=== PATIENT | male | born 1980 | race Caucasian/White ===

== ENCOUNTER → 2017-05-01 | Outpatient (CLI) | payer OTHER ==
--- NOTE | 2017-05-01 13:45 | KCIC ---
KNEE RIGHT 3V Indication: .Pain for 3 months. Comparison: No comparison is available. FINDINGS: Suprapatellar joint effusion. No acute fracture identified. There is some ill-defined density within the infrapatellar fat could represent scarring or swelling. Mild degenerative spurring at the medial compartment. IMPRESSION: 1. Joint effusion. 2. Scarring or edema of the infrapatellar fat 3. No acute fracture or dislocation. 4. Mild degenerative spurring at the medial compartment. Electronically signed by: Colt Zhang MD (05/01/2017 1:42 PM) [facility]
== END | disposition home or self-care (01) ==
LOC: KCIC 13:08
PROVIDERS: ATTEND Family Medicine
DX: M25.461 Effusion, right knee (principal)
CPT/HCPCS: 73562

== ENCOUNTER → 2018-06-12 | Outpatient (CLI) | payer OTHER ==
--- NOTE | 2018-06-12 16:01 | KCIC ---
MR of the left knee Indication: Left knee pain, history of ACL tear without repair. Popping, locking and instability. Comparison: None are available. Technique: The standard multiplanar sequences are obtained. FINDINGS: Artifact: No significant image degradation. Medial meniscus: Mild signal within the medial meniscus, subtle violation of the undersurface on a couple of coronal slices compatible with a mild tear. Lateral meniscus: Signal within the posterior horn, extends laterally through the nonarticular peripheral margin. There is also more subtle violation of the superior and inferior surface. Anterior cruciate ligament: Not visualized, compatible with the history of unrepaired tear. Posterior cruciate ligament: Intact Medial collateral ligament: Intact. Lateral structures: * Iliotibial band: Intact. * Lateral collateral ligament: Intact. * Biceps femoris tendon: Intact * Popliteus tendon attachment: Intact Extensive mechanism: * Patellar tendon: Intact * Quadriceps tendon: Intact * Retinacular structures: Intact Fluid: Small joint effusion. No significant De La Cruz's cyst. Intra-articular bodies: None visualized Joint compartments * patellofemoral joint: Chondromalacia the patella with heterogeneous signal and mild fissuring. * medial compartment: Mild chondromalacia medial femoral condyle. * lateral compartment:Intact Bones: Mild subchondral marrow edema at the posterior medial femoral condyle adjacent to the gastrocnemius insertion. No acute fracture or aggressive bone destruction. Soft tissue: Unremarkable Impression: 1. 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 2. Medial meniscal tear. 3. Lateral meniscal tear. Electronically signed by: Colt Zhang MD (06/12/2018 3:57 PM) [facility]
== END | disposition home or self-care (01) ==
LOC: KCIC MRI 10:51
PROVIDERS: ATTEND Family Medicine
DX: S83.242A Other tear of medial meniscus, current injury, left knee, initial encounter (principal); S83.282A Other tear of lateral meniscus, current injury, left knee, initial encounter; R60.0 Localized edema; M22.42 Chondromalacia patellae, left knee; M25.462 Effusion, left knee; X58.XXXA Exposure to other specified factors, initial encounter; Y93.89 Activity, other specified; Y92.89 Other specified places as the place of occurrence of the external cause; Y99.8 Other external cause status
CPT/HCPCS: 73721

== ENCOUNTER 2018-07-25 06:07 | Day surgery (SDC) | payer OTHER ==
[~2018-07-25] VITALS: Ht 180.3 cm; Wt 98.0 kg
[2018-07-25] MEDS ORDERED: LISI-130 PO (06:40)
[2018-07-25] MEDS ORDERED: LEVO75TA5 PO (06:40)
[2018-07-25] MEDS ORDERED: VALA500T5 PO (06:40)
[2018-07-25] MEDS: IV RINGERS,LACTATED 1000ML 1,000 ML IV SCH ×2 (06:45→09:22)
--- NOTE | 2018-07-25 06:57 | DISCH ---
DISCHARGE INSTRUCTIONS Condition on Discharge Condition on Discharge: Stable Activity After Discharge Activity Instructions for Disc: Activity as tolerated Other activity instructions: ok to ADLs, no exercise/sports Bathing Instructions: Shower-keep dressing dry Lifting Instructions after Dis: No heavy lifting, No pulling or pushing Weight Bearing Status after Di: As tolerated Diet after Discharge Diet after Discharge: Regular Wound Incision Care Wound/Incision Care: Ice to area for comfort, Keep wound/cast CDI, Change dressing Other wound/incision instructi: ok to change dressing after 2 days Contacting the DROusmane after DC Call your doctor for: Concerns you may have Follow-Up Follow up with: Estephania in 2 wks IVONNE STEPHENSON II, MD Jul 25, 2018 06:57
[2018-07-25] MEDS ORDERED: LIDOCAINE 1% PF 2 ML VIAL. ID PRN (07:00)
[2018-07-25] MEDS ORDERED: HYDROmorphone 2 MG/ML VIAL IV PRN (07:00)
[2018-07-25] MEDS ORDERED: MORPHINE SULFATE 4 MG/ML VIAL. IV PRN (07:00)
[2018-07-25] MEDS ORDERED: fentaNYL PF VIAL 100 MCG/2 ML VIAL IV PRN (07:00)
[2018-07-25] MEDS ORDERED: PROCHLORPERAZINE 10 MG/2 ML VIAL. IV PRN (07:00)
[2018-07-25] MEDS ORDERED: ONDANSETRON PF 4 MG/2 ML VIAL. IV PRN (07:00)
[2018-07-25] MEDS ORDERED: MIDAZOLAM HCL/PF 2 MG/2 ML VIAL. ONE (07:12)
[2018-07-25] MEDS ORDERED: fentaNYL PF VIAL 100 MCG/2 ML VIAL ONE (07:12)
[2018-07-25] MEDS ORDERED: DEXAMETHASONE SOD PHOS 20 MG/5 ML VIAL. ONE (07:12)
[2018-07-25] MEDS ORDERED: PROPOFOL 20 ML IV ONE (07:12)
[2018-07-25] MEDS ORDERED: LIDOCAINE 2% PF 5 ML VIAL. ONE (07:12)
[2018-07-25] MEDS ORDERED: ONDANSETRON PF 4 MG/2 ML VIAL. ONE (07:12)
[2018-07-25] MEDS ORDERED: LIDOCAINE 1% PF 30 ML VIAL. ONE (07:14)
[2018-07-25] MEDS ORDERED: BUPIVACAINE MPF 0.5% 30 ML VIAL. ONE (07:14)
[2018-07-25] MEDS ORDERED: EPINEPHrine VIAL 30 MG/30 ML VIAL ONE (07:14)
[2018-07-25] MEDS ORDERED: SEVOFLURANE 61 TO 120 MINUTES. IH ONE (09:02)
--- NOTE | 2018-07-25 09:20 | PDOC4 ---
Operative Note Operative Note Date of procedure: 07/25/2018 Surgeon: Troy Stephenson Asst.: Anabel Martinez, board certified music therapist, was necessary to assist with graft preparation as well as manipulation of the leg during tunnel drilling. Preoperative diagnosis: #1 complete left knee ACL tear #2 lateral meniscus tear #3 medial meniscus tear Postoperative diagnosis: #1 complete left knee ACL tear #2 complex white white zone lateral meniscus tear Procedure performed: #1 arthroscopic assisted allograft ACL reconstruction #2 arthroscopic partial lateral meniscectomy Anesthesia: Gen. Blood loss: 10 mL Tourniquet time: 61 minutes Findings: #1 grade 2-3 changes centrally at patella #2 softening of lateral tibial plateau, grade 2 changes at the proximally 60 at medial femoral condyle, otherwise remainder of the intra-articular cartilage unremarkable #3 medial meniscus with flounce sign, stable to probing #4 complex inner portion lateral meniscus tear at the body #5 complete ACL tear #6 intact PCL Complications: None Reason for procedure: Patient is a pleasant 37-year-old who presented to my clinic complaining of giving out and pain at his left knee. It happened going on for many years, he initially injured his knee while intoxicated. Clinical and radiographic examination including MRI were consistent with the preoperative diagnosis and after discussion of the risks, benefits, and alternatives he elected to proceed with the above surgery. Description of procedure: Patient was greeted in the preoperative area by myself for the correct extremity was verified and marked. He was taken back to the operative suite and his antibiotics are started as he was brought back. Once in the operating room, he was stretched gently supine to the operating room table and secured to the bed with all pressure points padded. I then conducted my examination under anesthesia after successful induction of a general anesthetic. He had a positive pivot shift, positive Janice without endpoint. Knee was stable to varus and valgus in extension and 30 of flexion. Negative dial. At this point, the graft was started to thigh on the back table. We then proceeded prep and drape left lower extremity in our usual sterile fashion and conducted our standard preoperative timeout. Prior to this, a nonsterile tourniquet had been it in place to his left upper thigh as well as a padded bump laterally at his hip and a padded rest at the foot of the bed to maintain his knee in 90 passively. I then palpated and marked surface anatomy and kassandra lines for my planned portal sites. After accomplishing this, the extremity was exsanguinated with an Esmarch and tourniquet was insufflated to 250 mmHg. I then used a scalpel to incise skin for my standard anterolateral arthroscopic portal. I used blunt arthroscopic trocar into the suprapatellar pouch followed by the camera. I then conducted my diagnostic arthroscopy with the above-noted findings and upon entering the medial compartment used a spinal needle to localize an anteromedial portal and incised skin in accordance with this and dilated the hole. I then introduce my probe and continued on with my diagnostic arthroscopy in the medial compartment followed by the remainder. Upon entering the lateral compartment, he was placed into a [id number] position and inspected the meniscus tear, I did not think he was amenable to repair and used a comminution of shaver and arthroscopic biter to trim back to stable edges. After this, I debrided the ACL and identified the stump on the lateral femoral condyle and the ACL origin on the tibia. Identified the wounds the meniscus and the PCL as well. While I was debriding the ACL remnant, my certified teacher assistant was placing running whipstitch is in both ends of the peroneal's longus allograft. It was then placed into the Endobutton device which was then secured on the graft table under tension. After this, I used the tip guide to identify my tibial tunnel intra-articularly. I gently placed the guidepin in skin and made an incision in accordance with this and spread down to bone using electrocautery to dissect as well as achieve hemostasis. After this, I redirected my attention to identify my landmarks and placing my tip guide at the correct site and then advanced the guidepin into the knee. A large curette was then placed over top of this. I grafted incised and I then drilled with a soft tissue protector for my tibial tunnel. I then cleaned out this hole and placed my plug in the tibia. After this, I used a 6 mm [id number] guide and hyperflexion at the knee to advance a Beath pin into the femoral site. I advanced a bicortically and then used my Endobutton reamer. After this, I removed the guidepin and the Endobutton reamer and bony debris. I then measured my tunnel, measured about 36 mm. After this, I reintroduced the Beath pin out through the lateral thigh and then used my acorn reamer to create my femoral tunnel. I then removed the Beath pin once more as well as the drill and repositioned the knee to clean out the tunnel. I then obtained a worms eye view and visualized in appropriate tunnel with a intact cortex. After this, I repositioned the knee and advanced the Beath pin out through the lateral thigh again. It was clamped at this point. I then used this to shuttle a #2 ultra braid through the femoral tunnel followed by using a loop grasper to pull to the tibial tunnel. I then used this to shuttle my graft through, I confirmed appropriate Endobutton seeding with toggle that disappeared on maximal back retraction. The knee was then cycled repeatedly. After this, used my nitinol wire in between the limbs of the graft and impacted my tunneloc device in a position after tensioning it, cycling, and retensioning. I then removed the tunnel lock insertion device, the nitinol wire, and cut the graft limbs after visualizing intra-articularly with my arthroscopic camera appropriate graft position trajectory and no protrusion of hardware. He had a negative Janice with a solid endpoint. After this, the wound irrigated out. I then placed the shaver and camera in the suprapatellar pouch and while an certified teacher assistant perform vigorous palpation in the posterior knee, I performed repeated aspiration maneuvers to ensure all loose debris had been removed. I inspected the gutters and the knee again as well to ensure this up and accomplished. I then removed all excess arthroscopic fluid and the arthroscopic instrumentation. At this point, we close the portals with simple interrupted 3-0 nylon. The Endobutton sutures were removed. After this, I closed the tibial incision with inverted interrupted 2-0 Vicryl for the deep layer and subcutaneous cutaneous tissue and 4-0 Monocryl in buried septic fashion for skin. The tourniquet was let down after Xeroform gauze and EBD sterile Sof-Rol and an Tip wrap were applied to his leg. A hinged knee brace, full range of motion, was then secured in place. He was then awakened from anesthesia. He tolerated surgery well. No complications. All counts correct 2 prior to wound closure. Postoperative plan is discharge patient home, weightbearing as tolerated. We will see him back in 2 weeks in my clinic, sooner should a problem arise. TROY STEPHENSON II, MD Jul 25, 2018 09:20
[2018-07-25] MEDS: fentaNYL PF VIAL 100 MCG/2 ML VIAL IV PRN ×2 (09:22→10:02)
[2018-07-25] MEDS ORDERED: DOCU-109 PO (09:31)
[2018-07-25] MEDS ORDERED: ONDA4TAB7 PO (09:32)
[2018-07-25] MEDS ORDERED: OXYC1TAB15 PO (09:32)
[2018-07-25] MEDS ORDERED: oxyCODONE/APAP 5/325 1 TAB TABLET PO ONE (10:00)
[2018-07-25 10:11] VITALS: BP 154/85
== END 2018-07-25 11:41 | disposition home or self-care (01) ==
LOC: SURG 06:07
PROVIDERS: ATTEND Orthopaedic Surgery Sports Medicine
DX: S83.512A Sprain of anterior cruciate ligament of left knee, initial encounter (principal); S83.272A Complex tear of lateral meniscus, current injury, left knee, initial encounter; I10 Essential (primary) hypertension; E03.9 Hypothyroidism, unspecified; Z98.52 Vasectomy status; Z90.49 Acquired absence of other specified parts of digestive tract; Z82.49 Family history of ischemic heart disease and other diseases of the circulatory system; Z83.6 Family history of other diseases of the respiratory system; Z72.89 Other problems related to lifestyle; Z79.899 Other long term (current) drug therapy; X58.XXXA Exposure to other specified factors, initial encounter; Y93.89 Activity, other specified; Y92.89 Other specified places as the place of occurrence of the external cause; Y99.8 Other external cause status
CPT/HCPCS: 29881; 29888; 97116; A7015; C1713; C1763; J0171; J0696; J0780; J1100; J2001; J2250; J2405; J2704; J3010; J3490; J7120

== ENCOUNTER → 2018-12-24 | Outpatient (CLI) | payer OTHER ==
[~2018-12-24] MED LIST: DOCU-109 PO; LEVO75TA5 PO; LISI-130 PO; ONDA4TAB7 PO; OXYC1TAB15 PO; VALA500T5 PO
--- NOTE | 2018-12-24 11:14 | KCIC ---
MR of the left knee HISTORY: Left knee pain after ACL reconstruction. Pain for 10 days. Twisting injury. TECHNIQUE: Routine multiplanar sequences are obtained. COMPARISON: June 12, 2018. FINDINGS: Mild signal within the medial meniscus appears similar to the prior study. No new evidence of tear. Blunting of the lateral meniscus presumably due to prior meniscectomy. There is some linear signal within the posterior horn extending to the inferior surface, which demonstrates fluid T2 signal, therefore suspicious for recurrent tear. Anterior cruciate ligament has been reconstructed and appears intact. Posterior cruciate ligament is intact. Medial collateral ligament is intact. Iliotibial band unremarkable. Fibular collateral ligament, biceps femoris tendon and popliteus tendon are intact. Extensor mechanism is intact. Large joint effusion. Mild chondromalacia of the patella. Full-thickness articular cartilage defect at the weightbearing medial femoral condyle has developed since prior study. This measures 20 mm AP by about 10 mm wide. Note that a large loose or displaced articular cartilage fragment cannot be visualized in the joint on the study. There are a few tiny hypointense structures posterior to the medial joint could represent tiny cartilage fragments versus synovial tissue. No aggressive bone destruction. No acute fracture. No significant De La Cruz's cyst. There is scarring and edema within the infrapatellar fat. IMPRESSION: 1. Blunting of the lateral meniscus presumably due to meniscectomy. However, there is linear signal with surface exposure at the posterior horn which demonstrates fluid T2 signal appearance, therefore suspicious for recurrent tear. 2. Mild signal within the medial meniscus is again seen and appears unchanged. No evidence of new medial meniscal tear. 3. Development of a relatively large full-thickness articular cartilage defect of the weightbearing medial femoral condyle. 4. Anterior cruciate ligament reconstruction appears intact. 5. Large joint effusion. Edema and scarring of the infrapatellar fat. Electronically signed by: Colt Zhang MD (12/24/2018 11:10 AM) [facility]
== END | disposition home or self-care (01) ==
LOC: KCIC MRI 07:44
PROVIDERS: ATTEND Orthopaedic Surgery Sports Medicine
DX: M22.42 Chondromalacia patellae, left knee (principal); M25.462 Effusion, left knee
CPT/HCPCS: 73721

== ENCOUNTER → 2019-07-23 | Outpatient (CLI) | payer OTHER ==
--- NOTE | 2019-07-23 10:14 | KCIC ---
THYROID ULTRASOUND History: Hoarse voice for 3 to 4 months, hypothyroidism Comparison: None. Findings: Multiple sonographic images of the thyroid gland are submitted. Right lobe measured 3.2 x 1.1 x 1.3 cm. Left lobe measured 3.2 x 1.3 x 1.5 cm. Isthmus measured 0.6 cm AP thickness. There is diffuse heterogeneity of the thyroid parenchyma bilaterally, no discrete nodule demonstrated although smaller nodule may difficult to distinguish given heterogeneity. There is no significant hypervascularity of the thyroid gland. Impression: 1. There is diffuse heterogeneity of the thyroid parenchyma bilaterally, no discrete nodule demonstrated. Electronically signed by: Juan Castellano MD (07/23/2019 10:11 AM) [id number]
== END | disposition home or self-care (01) ==
LOC: KCIC US 08:40
PROVIDERS: ATTEND Family Medicine
DX: E03.9 Hypothyroidism, unspecified (principal); R49.0 Dysphonia
CPT/HCPCS: 76536